=== PATIENT | male | born 1980 | race Caucasian/White ===

== ENCOUNTER 2020-12-13 22:34 | Emergency (ER) | payer SELFPAY ==
[~2020-12-13] VITALS: Ht 175.3 cm; Wt 91.1 kg
[2020-12-13] MEDS ORDERED: AMPICILLIN/SULBACTAM 3 GM in SODIUM CHLORIDE 0.9% 100 ML IV ONE (23:00)
[2020-12-13] MEDS ORDERED: SODIUM CHLORIDE FLUSH 10ML SYR IVF ONE (23:00)
[2020-12-13 23:16] LABS: BASOPHILS % (AUTO) 1 % (0-1); EOSINOPHILS % (AUTO) 3 % (1-7); LYMPHOCYTES % (AUTO) 21 % (22-44); MEAN CORPUSCULAR HGB CONC 33.7 g/dL (33.2-36.2); MEAN PLATELET VOLUME 7.1 fL (7.4-10.4); MONOCYTES % (AUTO) 10 % (2-9); NEUTROPHILS % (AUTO) 65 % (42-75); PLATELET COUNT 323 x10^3/uL (130-400); RED BLOOD COUNT 5.31 x10^6/uL (4.38-5.82); RED CELL DISTRIBUTION WIDTH 14.1 % (9.4-14.8)
[2020-12-13 23:17] LABS: MD NO
[2020-12-13 23:28] LABS: ANION GAP 5 mmol/L (5-15); CALCIUM 8.9 mg/dL (8.5-10.1); CHLORIDE 105 mmol/L (98-107); CREATININE 1.12 mg/dL (0.7-1.3)
--- NOTE | 2020-12-13 23:28 | NUR ---
PT STATES HAVING LEFT SIDED DENTAL PAIN FOR 2 DAYS. PT STATED SWELLING BEGAN AFTER BITING DOWN ON FOOD AND HEARING "SNAP". LEFT SIDE OF FACE HAS ABOOUT 2+ SWELLING. PIV STARTED, LABS DRAWN, ABX HUNG. PER ERP NO BLOOD CULTURES TO BE DRAWN
[2020-12-13 23:29] LABS: ALBUMIN 4.1 g/dL (3.4-5.0)
[2020-12-13] MEDS ORDERED: OMNIPAQUE 350 MG/ML, 75ML BOTTLE ONE (23:50)
--- NOTE | 2020-12-13 23:53 | NUR ---
PT IN CT AND WAS CONCERNED ABOUT GETTING RADIATION FROM SCAN. THIS RN SPOKE WITH PT AND TOLD HIM THAT SCAN IS NEEDED BEFORE WE ARE ABLE TO DO ANY INTERVENTIONS, WE ARE UNABLE TO BLINDLY POKE THE SITE. THIS RN EXPLAINED THAT PT HAS THE RIGHT TO REFUSE, PT STATED THAT HE IS WILLING TO GET IT DONE. ERP AWARE
[2020-12-14] MEDS ORDERED: ONDANSETRON 2MG/ML, 2ML ONE (00:11)
[2020-12-14] MEDS ORDERED: MORPHINE SULFATE 4 MG/ML, 1ML ONE (00:12)
[2020-12-14 00:22] VITALS: BP 140/88
[2020-12-14] MEDS ORDERED: ONDANSETRON 2MG/ML, 2ML IVPush ONE (00:30)
[2020-12-14] MEDS ORDERED: MORPHINE SULFATE 4 MG/ML, 1ML IVPush PRN (00:30)
--- NOTE | 2020-12-14 00:59 | NUR ---
Patient given discharge instructions and they have confirmed that they understand the instructions. Patient ambulatory with steady gait. PT'S FRIEND TO DRIVE HOME
== END 2020-12-14 01:01 | disposition home or self-care (01) ==
LOC: ED 12-14 00:36
DX: K02.9 Dental caries, unspecified (principal); R51.9 Headache, unspecified; L03.211 Cellulitis of face
CPT/HCPCS: 36415; 70487; 80048; 82040; 85025; 96365; 96375; 99285; J0295; J2270; J2405; Q9967